=== PATIENT | male | born 1960 | race Caucasian/White ===

== ENCOUNTER → 2018-02-27 | Outpatient (CLI) | payer SELFPAY ==
--- NOTE | 2018-02-27 16:16 | US ---
EXAMINATION TYPE: US kidneys/renal and bladder DATE OF EXAM: 02/27/2018 COMPARISON: NONE CLINICAL HISTORY: D49.9 STAGING CA BLADDER. h/o bladder ca, 2 previous surgeries, no symptoms now, mo rbidly obese EXAM MEASUREMENTS: Right Kidney: 10.8 x 4.9 x 6.1 cm Left Kidney: 12.9 x 4.0 x 6.6 cm Right Kidney: No hydronephrosis or masses seen Left Kidney: No hydronephrosis or masses seen Bladder: wnl Bilateral Jets seen: Yes Exam is limited by patient body habitus. Cortical medullary differentiation appears maintained. IMPRESSION: Renal sizes as described.
== END ==
LOC: RADUSWWP 14:34
PROVIDERS: ATTEND Urology
DX: D49.4 Neoplasm of unspecified behavior of bladder (principal)
CPT/HCPCS: 76770